=== PATIENT | female | born 1995 | race Caucasian/White ===

== ENCOUNTER 2017-05-18 14:04 | Emergency (ER) | payer MEDICAID, OTHER ==
[2017-05-18] MEDS ORDERED: Ketorolac Tromethamine 30 MG/ML VIAL ONE (15:47)
[2017-05-18] MEDS ORDERED: diphenhydrAMINE 50 MG/ML VIAL ONE (15:47)
[2017-05-18] MEDS ORDERED: Metoclopramide HCl 10 MG/2 ML VIAL ONE (15:47)
== END 2017-05-18 16:30 | disposition home or self-care (01) ==
LOC: ERS 14:04
DX: R51 Headache (principal); F41.9 Anxiety disorder, unspecified; F31.9 Bipolar disorder, unspecified; F17.210 Nicotine dependence, cigarettes, uncomplicated
CPT/HCPCS: 96374; 99406; J1200; J1885; J2765

== ENCOUNTER 2017-07-25 21:30 | Emergency (ER) | payer OTHER | END 2017-07-25 21:50 | disposition left against medical advice (07) | LOC: ERS 21:30 | DX: Z53.21 Procedure and treatment not carried out due to patient leaving prior to being seen by health care provider (principal) ==

== ENCOUNTER 2018-05-03 11:08 | Emergency (ER) | payer OTHER, SELFPAY ==
[2018-05-03 11:37] LABS: Bilirubin Small (Negative); Blood, Urine Negative (Negative); Glucose, Urine (Dipstick) Negative (Negative); Leukocyte Negative (Negative); Nitrite Negative (Negative); Protein, Urine (Dipstick) Negative (Neg-Trace); Urobilinogen 0.2 mg/dL (0.2-1.0)
[2018-05-03 11:38] LABS: Clarity CLEAR (Clear)
[2018-05-03 11:39] LABS: Pregnancy Test - Urine (BHCG) Negative (Negative); Pregu Control Background? CLEAR/WHITE (CLR/WHITE); Pregu Control Bar Appear? YES (CONTROL BAR)
[2018-05-03] MEDS ORDERED: cefTRIAXone\\ROCEPHIN 250 MG VIAL ONE (12:12)
[2018-05-03] MEDS ORDERED: Lidocaine 1% PF 5 ML VIAL ONE (12:12)
[2018-05-03] MEDS ORDERED: Azithromycin 250 MG TAB ONE (12:12)
[2018-05-05 22:25] LABS: Chlamydia by PCR Not Detected (NotDetected); GC by PCR Not Detected (NotDetected)
== END 2018-05-03 12:49 | disposition home or self-care (01) ==
LOC: ERS 11:08
DX: N76.0 Acute vaginitis (principal); F41.9 Anxiety disorder, unspecified; F31.9 Bipolar disorder, unspecified; F17.210 Nicotine dependence, cigarettes, uncomplicated
CPT/HCPCS: 81003; 81025; 87480; 87491; 87510; 87591; 87660; 96372; J0696; J2001

== ENCOUNTER 2019-08-11 23:09 | Emergency (ER) | payer OTHER, SELFPAY ==
[2019-08-11 23:52] LABS: #Eosinphils 0.2 thou/uL (0.0-0.7); #Lymphocytes 1.9 thou/uL (1.20-3.40); #Monocytes 0.4 thou/uL (0.11-0.59); #Neutrophils 3.3 thou/uL (1.40-6.50); %Basophils 0.6 % (0.0-1.0); %Eosinophils 3.7 % (0.0-10.0); %Lymphocytes 32.4 % (21.0-51.0); %Monocytes 6.5 % (0.0-10.0); %Neutrophils 56.8 % (42.0-75.0); Hemoglobin 12.5 g/dL (12.0-16.0); Mean Corpuscular HGB CONC 34.5 g/dL (32.0-36.0); Mean Corpuscular Hemoglobin 31.4 pg (27.0-31.0); Mean Platelet Volume 7.6 fL (7.4-10.4); Platelet Count 163 thou/uL (130-400); RBC Distribution Width 10.8 % (11.5-14.5); Red Blood Cell (RBC) Count 3.99 mill/uL (4.20-5.40); White Blood Cell (WBC) Count 5.7 thou/uL (4.8-10.8)
[2019-08-12 00:13] LABS: ALT (SGPT) 10 U/L (8-55); AST (SGOT) 12 U/L (5-34); Albumin 4.3 g/dL (3.5-5.0); Alkaline Phosphatase 47 U/L (40-110); Anion Gap 12 mmol/L (10-20); BUN (Urea Nitrogen) 15 mg/dL (7.0-18.7); Bilirubin, Total 0.3 mg/dL (0.2-1.2); Calc. Creatinine Clearance 0 mL/min (70-130); Calcium 9.4 mg/dL (7.8-10.44); Carbon Dioxide 23 mmol/L (22-29); Chloride 105 mmol/L (98-107); Estimated GFR-MDRD Greater than 90; Globulin 2.5 g/dL (2.4-3.5); Glucose 94 mg/dL (70-105); Potassium 3.4 mmol/L (3.5-5.1); Protein, Total 6.8 g/dL (6.0-8.3); Sodium 137 mmol/L (136-145)
--- NOTE | 2019-08-12 08:08 | ULT ---
PRELIMINARY REPORT/[facility]/EMERGENCY AFTER HOURS PROCEDURE: EXAM: Ultrasound Obstetrical Less Than 14 Weeks Transvaginal Study HISTORY: Vaginal bleeding. TECHNIQUE: Real-time, M-mode, and color flow transvaginal sonography was performed or attempted of e maternal pelvis and fetus. COMPARISONS: None . TECHNICAL QUALITY: Satisfactory . FINDINGS: Uterine size: 8.4 x 4.2 x 4.5 cm. Endometrium: Gestational sac with no pole with sac size consistent with 5 week 2 day gestation. heart rate: Not visualized . Yolk sac: Visualized . Uterine masses: None . Subchrionic hemorrhage: None . Right Ovary Size: 4.1 x 2.5 x 2.8 cm . Appearance: 1.6 cm corpus luteum. Blood Flow: Normal . Left Ovary Size: 3.6 x 1.6 x 2.2 cm . Appearance: Normal . Blood Flow: Normal . Pelvis Masses: None . Fluid: None . Other: None . IMPRESSION: Gestational sac with yolk sac in the endometrium and no pole or heart rate consistent wit h 5 week 2 day gestation. Follow-up study in 2 weeks may be helpful to see if a pole develops. RIGHT corpus luteum. No other abnormality identified. ELECTRONICALLY SIGNED BY: Ap Sterling MD Aug 12, 2019 1:04:03 AM CDT This report is intended for review by the ordering physician only, in accordance of law. If you recei ve this report in error, please call [facility] at [phone]. FINAL REPORT PELVIC ULTRASOUND INCLUDING TRANSVAGINAL AND VASCULAR DUPLEX WITH COLOR AND SPECTRAL DOPPLER IMAGING: EMERGENCY AFTER HOURS STUDY DATE: 08-12-2019 TIME: 12:40 A.M. History: , approximately 5 weeks. FINDINGS: Intrauterine gestational sac approximately 5 weeks 2 days with no heartbeat. 1.6 cm right ovari an corpus luteum cyst. Follow up serum HCGs and consider follow up ultrasound in 1-2 weeks to document viability. This report is in agreement with the preliminary report.
== END 2019-08-12 01:00 | disposition home or self-care (01) ==
LOC: ERS 23:09
DX: O20.0 Threatened abortion (principal); O99.341 Other mental disorders complicating pregnancy, first trimester; F31.9 Bipolar disorder, unspecified; F41.9 Anxiety disorder, unspecified; O99.331 Smoking (tobacco) complicating pregnancy, first trimester; F17.210 Nicotine dependence, cigarettes, uncomplicated; Z3A.01 Less than 8 weeks gestation of pregnancy
CPT/HCPCS: 36415; 76856; 80053; 84702; 85025; 86900; 86901